=== PATIENT | female | born 1940 | race Two or more races ===

== ENCOUNTER 2023-06-10 14:00 | Emergency (ER) | payer MEDICARE, BC ==
[~2023-06-10] VITALS: Ht 157.5 cm; Wt 50.8 kg
[2023-06-10 14:03] VITALS: BP 144/65; TEMP 98; O2SAT 96
== END 2023-06-10 14:50 | disposition home or self-care (01) ==
LOC: ER 14:05
DX: R53.1 Weakness (principal); R19.7 Diarrhea, unspecified; Z53.21 Procedure and treatment not carried out due to patient leaving prior to being seen by health care provider